=== PATIENT | female | born 1990 | race Caucasian/White ===

== ENCOUNTER 2016-10-05 17:46 | Emergency (ER) | payer OTHER ==
[~2016-10-05] VITALS: Ht 160 cm; Wt 70.1 kg
[2016-10-05] MEDS ORDERED: AUGM875T28 PO (18:40)
[2016-10-05] MEDS ORDERED: AUGMENTIN 875 MG TAB PO ONE (18:45)
[2016-10-05 18:51] VITALS: BP 118/70
== END 2016-10-05 18:52 | disposition home or self-care (01) ==
LOC: M ED 17:46
DX: H66.91 Otitis media, unspecified, right ear (principal)

== ENCOUNTER 2016-11-16 16:52 | Emergency (ER) | payer OTHER ==
[~2016-11-16] VITALS: Ht 160 cm; Wt 68.2 kg
[~2016-11-16 16:52] MED LIST: AUGM875T28 PO
[2016-11-16 16:53] VITALS: BP 117/75
== END 2016-11-16 18:49 | disposition left against medical advice (07) ==
LOC: M ED 16:52
DX: H92.09 Otalgia, unspecified ear (principal); Z53.21 Procedure and treatment not carried out due to patient leaving prior to being seen by health care provider

== ENCOUNTER 2016-12-30 08:08 | Emergency (ER) | payer OTHER ==
[~2016-12-30] VITALS: Ht 160 cm; Wt 65.1 kg
[2016-12-30 08:09] VITALS: BP 127/74
== END 2016-12-30 09:42 | disposition home or self-care (01) ==
LOC: M ED 08:08
DX: H92.01 Otalgia, right ear (principal); J06.9 Acute upper respiratory infection, unspecified

== ENCOUNTER 2017-10-16 07:41 | Emergency (ER) | payer OTHER | END 2017-10-16 08:31 | disposition home or self-care (01) | LOC: M ED 07:41 | DX: Z76.0 Encounter for issue of repeat prescription (principal); O21.0 Mild hyperemesis gravidarum; Z3A.00 Weeks of gestation of pregnancy not specified | CPT/HCPCS: 99282 ==

== ENCOUNTER 2017-10-28 09:02 | Emergency (ER) | payer OTHER ==
[2017-10-28 09:28] LABS: BASO % 0.3 % (0.0-1.0); EOS % 0.1 % (0.0-3.0); HEMATOCRIT 39.7 % (36.0-47.0); HEMOGLOBIN 13.6 g/dl (12.0-15.5); IMMATURE GRANULOCYTE % 0.3 % (0-3.0); LYMPH # 1.8 10^3/uL (1.5-6.5); LYMPH % 24.5 % (24.0-44.0); MEAN CORPUSCULAR HEMOGLOBIN 29.6 pg (27.0-33.0); MEAN CORPUSCULAR HGB CONC 34.3 g/dl (32.0-36.5); MEAN CORPUSCULAR VOLUME 86.3 fl (80.0-96.0); MONO # 0.4 10^3/uL (0.0-0.8); NEUTROPHILS # 5.1 10^3/uL (1.8-7.7); NEUTROPHILS % 69.8 % (36.0-66.0); PLATELET COUNT, AUTOMATED 237 10^3/uL (150-450); RED CELL DISTRIBUTION WIDTH 11.9 % (11.5-14.5); WHITE BLOOD COUNT 7.4 10^3/uL (4.0-10.0)
[2017-10-28 10:03] LABS: KETONE, URINE AUTO RFX NEGATIVE (NEGATIVE); LEUKOCYTE ESTERASE UR AUTO RFX NEGATIVE (NEGATIVE); NITRITE, URINE AUTO RFX NEGATIVE (NEGATIVE); RBC, URINE AUTO RFX TNTC /HPF (0-3); SPECIFIC GRAVITY UR AUTO RFX 1.009 (1.002-1.035); SQUAM EPITHELIAL CELL UR AURFX 2 /HPF (0-6); WBC, URINE AUTO RFX 3 /HPF (0-3)
[2017-10-28 10:37] LABS: HCG, SERUM QUANTITATIVE 66616 MIU/ML
== END 2017-10-28 11:02 | disposition home or self-care (01) ==
LOC: M ED 09:02
DX: O23.41 Unspecified infection of urinary tract in pregnancy, first trimester (principal); O20.8 Other hemorrhage in early pregnancy; Z3A.01 Less than 8 weeks gestation of pregnancy
CPT/HCPCS: 76801

== ENCOUNTER 2017-10-29 14:08 | Emergency (ER) | payer OTHER ==
[2017-10-29] MEDS: METOCLOPRAMIDE 10 MG TAB PO (17:27)
== END 2017-10-29 17:32 | disposition home or self-care (01) ==
LOC: M ED 14:08
DX: O21.0 Mild hyperemesis gravidarum (principal); Z79.899 Other long term (current) drug therapy; Z3A.01 Less than 8 weeks gestation of pregnancy
CPT/HCPCS: 99283

== ENCOUNTER → 2017-11-02 | Outpatient (CLI) | payer OTHER ==
[2017-11-02 14:15] LABS: BASO % 0.4 % (0.0-1.0); EOS % 0.4 % (0.0-3.0); HEMATOCRIT 37.4 % (36.0-47.0); HEMOGLOBIN 12.7 g/dl (12.0-15.5); IMMATURE GRANULOCYTE % 0.4 % (0-3.0); LYMPH # 1.6 10^3/uL (1.5-6.5); LYMPH % 21.7 % (24.0-44.0); MEAN CORPUSCULAR HEMOGLOBIN 29.8 pg (27.0-33.0); MEAN CORPUSCULAR VOLUME 87.8 fl (80.0-96.0); MONO # 0.6 10^3/uL (0.0-0.8); MONO % 8.5 % (0.0-5.0); NEUTROPHILS # 5.1 10^3/uL (1.8-7.7); NEUTROPHILS % 68.6 % (36.0-66.0); PLATELET COUNT, AUTOMATED 237 10^3/uL (150-450); RED BLOOD COUNT 4.26 10^6/uL (4.00-5.40); RED CELL DISTRIBUTION WIDTH 11.9 % (11.5-14.5); WHITE BLOOD COUNT 7.4 10^3/uL (4.0-10.0)
[2017-11-02 15:06] LABS: HBsAg Prenatal NEGATIVE (NEGATIVE); HIV 1&2 SCREEN CENTAUR NEGATIVE (NEGATIVE); RUBELLA IgG QUALITATIVE IMMUNE (IMMUNE)
[2017-11-02 15:06] LABS: HEPATITIS C VIRUS ABY INDEX 0.1 INDEX (<0.8)
[2017-11-02 15:39] LABS: CHLAMYDIA DNA AMPLIFICATION NEGATIVE (NEGATIVE); GC DNA AMPLIFICATION NEGATIVE (NEGATIVE)
== END ==
LOC: M SMT 10:06
DX: Z34.81 Encounter for supervision of other normal pregnancy, first trimester (principal); Z36.89 Encounter for other specified antenatal screening; Z3A.08 8 weeks gestation of pregnancy
CPT/HCPCS: 86762

== ENCOUNTER → 2018-01-22 | Outpatient (CLI) | payer OTHER | LOC: M SMT 13:29 | DX: Z36.89 Encounter for other specified antenatal screening (principal); Z3A.19 19 weeks gestation of pregnancy | CPT/HCPCS: 76811 ==

== ENCOUNTER → 2018-03-30 | Outpatient (CLI) | payer OTHER ==
[~2018-03-30] MED LIST changes: +DICL10TA PO; +MACR100C43 PO; +PRENCHW PO; +REGL10TA6 PO
[2018-03-30 13:48] LABS: BASO % 0.3 % (0.0-1.0); EOS # 0.1 10^3/uL (0.0-0.50); EOS % 1.1 % (0.0-3.0); HEMATOCRIT 35.9 % (36.0-47.0); HEMOGLOBIN 12.1 g/dl (12.0-15.5); LYMPH # 1.6 10^3/uL (1.5-6.5); LYMPH % 16.1 % (24.0-44.0); MEAN CORPUSCULAR HGB CONC 33.7 g/dl (32.0-36.5); MEAN CORPUSCULAR VOLUME 89.1 fl (80.0-96.0); MONO # 0.5 10^3/uL (0.0-0.8); MONO % 4.7 % (0.0-5.0); NEUTROPHILS # 7.5 10^3/uL (1.8-7.7); NEUTROPHILS % 77.3 % (36.0-66.0); PLATELET COUNT, AUTOMATED 276 10^3/uL (150-450); RED BLOOD COUNT 4.03 10^6/uL (4.00-5.40); WHITE BLOOD COUNT 9.7 10^3/uL (4.0-10.0)
--- NOTE | 2018-03-31 05:50 | REP ---
Clinical: Anatomical evaluation. Comparison: 01/22/2018 . Findings: Examination demonstrates a single live intrauterine in cephalic presentation. motion is identified by technologist. Placenta is noted posterior and grade grade 1 without evidence for placenta previa or abruption. Amniotic fluid volume is normal. Cervix measures 4.2 cm in length and appears closed. No evidence for nuchal cord. Gestational age by LMP 29 weeks 6 days with MATT 06/09/2018 . Gestational age by current measurements 29 weeks 2 days with MATT 06/13/2018 . FHR equals 131 beats per minute. Estimated weight 1454 grams ( 39th percentile). Amniotic fluid index: 15.4 cm (9.0 - 23.4) Umbilical cord SD ratio: 3.27 (2.50 - 3.50). Anatomical assessment demonstrates normal structures including cranium, choroid plexus, cavum, cerebellum, facial features, lungs, four-chamber heart/ventricular outflow tracts, diaphragm, stomach, cord insertion/three-vessel cord, kidneys/bladder. Impression: 1. Single live intrauterine in cephalic presentation demonstrating appropriate interval growth. 2. In conjunction with prior examination anatomical assessment is complete and normal. Electronically Signed by Gen Raymond MD 03/31/2018 05:41 A
== END ==
LOC: M RAD 11:49
PROVIDERS: ATTEND Advanced Practice Midwife
DX: Z34.82 Encounter for supervision of other normal pregnancy, second trimester (principal)

== ENCOUNTER → 2018-05-12 | Outpatient (CLI) | payer OTHER | LOC: M SMT 13:38 | PROVIDERS: ATTEND Obstetrics & Gynecology | DX: Z34.83 Encounter for supervision of other normal pregnancy, third trimester (principal); Z3A.00 Weeks of gestation of pregnancy not specified ==

== ENCOUNTER 2018-06-11 10:28 | Inpatient (IN) | payer OTHER ==
[2018-06-11] VITALS (22 sets, daily range): BP systolic 94–142; BP diastolic 50–90
[~2018-06-11] VITALS: Ht 160 cm; Wt 86.7 kg
[2018-06-11] MEDS ORDERED: LR 1,000 ML IV SCH (11:12)
[2018-06-11] MEDS ORDERED: LACTATED RINGER'S 1000 ML IV STA (11:12)
--- NOTE | 2018-06-11 11:27 | HPEPDOC ---
Obstetrical History & Physical General Date of Admission June 11, 2018 at 10:28 History of Present Illness Chief Complaint: Contractions, term Information Provided By: Patient Age: 27 : 2 Term: 1 Pre-term: 0 Abortions: 0 Livin Care Care: Good Care Dating Final EDC: June 09, 2018 Final EDC by: LMP Antepartum Course Height (inches): 63 Pre- weight (lbs.): 135 Admission Weight (lbs.): 197 Past Medical History Past Obstetrical History : Past Obstetrical History: Primgravida (2015) Type of Delivery: Spontaneous Vaginal Del. 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 history Past Medical History Surgical History: Denies/None Family History Significant Family History: Diabetes, Hypertension Social History Marital Status: Single Psychosocial History: Anxiety (stopped lexapro with ) * Smoker: non-smoker Alcohol: Denies Drugs: denies Abuse Violence Screening Have you been hit/kicked/slapp: No Have you been sexually assault: No Imunizations Tdap status: current Allergies Coded Allergies: No Known Allergies (Unverified , 10/05/16) Medications Scheduled Pnv No.118/Iron Fumarate/FA ( 19 Chewable Tablet) 1 Chw Chw, 1 TAB PO DAILY Scheduled PRN Doxylamine Succinate/Vit B6 (Diclegis Dr 10-10 mg Tablet) 1 Tab Tab, 1 TAB PO Q8HP PRN for NAUSEA Metoclopramide HCl (Reglan) 10 Mg Tab, 10 MG PO Q6H PRN for NAUSEA Physical Examination Physical Examination GENERAL: Alert and oriented times three. Appear mildly uncomfortable and anxious BREAST: . ABDOMEN: Gravid and non-tender to touch. FETUS: Is vertex (VTX) by sterile vaginal examination (SVE), fetus is vertex (VTX) by Mark. HEART RATE: Regular rate and rhythm. LUNGS: Clear to auscultation (CTA). EXTREMITIES: No edema. No clonus. Deep tendon reflexes (DTRs) + 2. Vital Signs/I&O Vital Signs Date Time Temp Pulse Resp B/P (MAP) Pulse Ox O2 Delivery O2 Flow Rate FiO2 06/11/18 10:55 98.8 116 18 139/79 (99) Pertinent Laboratoy Data Blood Type: A- RBC Antibody Screen: Negative HIV: Negative Hepatitis B: Negative Hepatitis C: Negative Rapid Plasma Reagin: Nonreactive Rubella: Immune Chlamydia/Gonorrhea: Negative Group B Streptococcus: Negative Quad Screen Test: Declined Glucose Tolerance Test: 110 Anatomy Ultrasound Ultrasound Date: Jan 22, 2018 Placenta Location: Posterior Normal Anatomy: Yes Placenta Previa: No Estimated Weight (grams): 320 (33%) Other Ultrasounds 10/28/17 [facility] 7w6d subchorionic hemorrhage 11/02/17 [facility] + FH 8w4d 03/30/18 f/u anatomy 1454gm 39% Steroid Therapy Steroid Therapy: No Vaginal Examination Dilation: 3 cm Effacement: 80% Station: -2 Cervical Consistency: Soft (bloody show) Cervical Position: Middle Presentation: Cephalic presentation Assessment Heart Rate (FHR): 135 Variability: Moderate Accelerations: Positive Decelerations: Early, Variable Tocometer Contractions: Yes (3-4 minutes) Duration: less than 60 seconds Strength: palpated as moderate Assessment/Plan Assessment 25 is a 27-year-old (G)2 para (P)1-0-0-1 at 40+2 weeks by 7-week ultrasound. Presents to Labor and Delivery (L&D) with complaints of UC since 0300 this am accompanied by bloody show. Denies LOF or bleeding. Fetus is active. Pt is anxious, breathing with UC. 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 Diet: clear liquids. Group B Streptococcus (GBS) negative. Labs and intravenous (IV) per unit protocol. Counseled on Pitocin and induction of labor (IOL). Lactated Ringers (LR): Bolus 500 mL, then at 125 mL/hr. Pt plans epidural for labor coping Anticipate normal spontaneous delivery () C-S as appropriate. Nicole Talley CNM June 11, 2018 11:27
[2018-06-11 11:43] LABS: HEMATOCRIT 36.9 % (36.0-47.0); HEMOGLOBIN 12.3 g/dl (12.0-15.5); MEAN CORPUSCULAR HEMOGLOBIN 28.1 pg (27.0-33.0); MEAN CORPUSCULAR HGB CONC 33.3 g/dl (32.0-36.5); MEAN CORPUSCULAR VOLUME 84.2 fl (80.0-96.0); PLATELET COUNT, AUTOMATED 274 10^3/uL (150-450); RED BLOOD COUNT 4.38 10^6/uL (4.00-5.40); WHITE BLOOD COUNT 18.1 10^3/uL (4.0-10.0)
--- NOTE | 2018-06-11 13:07 | IPNPDOC ---
Text Note Date of Service The patient was seen on 06/11/18. NOTE Breathing hard with UC Cat II tracing, IV finally started after multiple attempts UC now regular, strong, Q 2-3 minutes x 60+ seconds SVE 6/100/-2, BBOw, + bloody show Epidural requested. Will continue bolus A-FIB/CHADSVASC A-FIB History Current/History of A-Fib/PAF?: No VS,Fishbone, I+O VS, Fishbone, I+O Laboratory Tests 06/11/18 11:29 Red Blood Count 4.38, Mean Corpuscular Volume 84.2, Mean Corpuscular Hemoglobin 28.1, Mean Corpuscular Hemoglobin Concent 33.3, Red Cell Distribution Width 12.5 Vital Signs Date Time Temp Pulse Resp B/P (MAP) Pulse Ox O2 Delivery O2 Flow Rate FiO2 06/11/18 10:55 98.8 116 18 139/79 (99) Nicole Talley CNM June 11, 2018 13:06
[2018-06-11] MEDS ORDERED: FENTANYL/ROPIVACAINE/NACL BAG 100 ML EPIDURAL SCH (14:00)
[2018-06-11] MEDS ORDERED: NALOXONE INJ 0.4 MG/1 ML VIAL (J2310) IV PRN (14:00)
[2018-06-11] MEDS ORDERED: EPIDURAL/PCA KEYS XX PRN (14:00)
[2018-06-11] MEDS ORDERED: diphenhydrAMINE INJ 50MG/ML VIAL (J1200) IV PRN (14:00)
[2018-06-11] MEDS ORDERED: ONDANSETRON 4MG/2ML VIAL (J2405) IV PRN (14:00)
[2018-06-11] MEDS ORDERED: EPIDURAL COMMENT XX SCH (14:00)
[2018-06-11] MEDS ORDERED: LACTATED RINGER'S 1000 ML IV PRN (14:00)
[2018-06-11] MEDS ORDERED: REFRIGERATOR IV KEYS XX PRN (14:00)
[2018-06-11] MEDS ORDERED: ePHEDrine SULFATE 25 MG/5 ML(5MG/ML) SYRINGE IV PRN (14:00)
--- NOTE | 2018-06-11 14:45 | IPNPDOC ---
Text Note Date of Service The patient was seen on 06/11/18. NOTE Dr Vasquez informed of pt status 7cm/BBOW, unable to ROM due to position of presenting part Recurrent variable decels, variability maintained UC 2-4 minutes apart x 45-60 seconds Position changed, IV hydration continued Anticipate NSVB A-FIB/CHADSVASC A-FIB History Current/History of A-Fib/PAF?: No VS,Fishbone, I+O VS, Fishbone, I+O Laboratory Tests 06/11/18 11:29 Red Blood Count 4.38, Mean Corpuscular Volume 84.2, Mean Corpuscular Hemoglobin 28.1, Mean Corpuscular Hemoglobin Concent 33.3, Red Cell Distribution Width 12.5 Vital Signs Date Time Temp Pulse Resp B/P (MAP) Pulse Ox O2 Delivery O2 Flow Rate FiO2 06/11/18 14:00 99.4 136 18 108/57 (74) Nicole Talley CNM June 11, 2018 14:45
--- NOTE | 2018-06-11 15:30 | IPNPDOC ---
Text Note Date of Service The patient was seen on 06/11/18. NOTE Feeling increased pressure Cat I tracing UC difficult to trace due to position 7/100/-1, AROM large amount clear fluid Anticipate NSVB A-FIB/CHADSVASC A-FIB History Current/History of A-Fib/PAF?: No VS,Fishbone, I+O VS, Fishbone, I+O Laboratory Tests 06/11/18 11:29 Red Blood Count 4.38, Mean Corpuscular Volume 84.2, Mean Corpuscular Hemoglobin 28.1, Mean Corpuscular Hemoglobin Concent 33.3, Red Cell Distribution Width 12.5 Vital Signs Date Time Temp Pulse Resp B/P (MAP) Pulse Ox O2 Delivery O2 Flow Rate FiO2 06/11/18 14:00 99.4 136 18 108/57 (74) Nicole Talley CNM June 11, 2018 15:30
[2018-06-11] MEDS ORDERED: OXYTOCIN 30 UNITS IN 0.9% NaCl 500ML IV BAG (J2590) As Ordered ONE (15:48)
[2018-06-11] MEDS ORDERED: OXYTOCIN DRIP 30 UNITS in APPROPRIATE DILUENT 1 EA IV SCH (16:34)
[2018-06-11] MEDS ORDERED: MEASLES,MUMPS,RUBELLA VACCINE INJ (MMR-II) (90707) SC SCH (16:45)
[2018-06-11] MEDS ORDERED: ACETAMINOPHEN 500 MG TAB PO PRN (16:45)
[2018-06-11] MEDS ORDERED: RHOGAM 300 MCG (1500 IU) INJ (J2790) IM SCH (16:45)
[2018-06-11] MEDS ORDERED: MOM 30ML SUSPENSION UDC PO PRN (16:45)
[2018-06-11] MEDS ORDERED: DIBUCAINE 1% OINTMENT 30GM TOP PRN (16:45)
[2018-06-11] MEDS ORDERED: IBUPROFEN 800 MG TAB PO PRN (16:45)
[2018-06-11] MEDS ORDERED: METHYLERGONOVINE MALEATE 0.2 MG TAB PO PRN (16:45)
[2018-06-11] MEDS ORDERED: ANUSOL HC CREAM 30GM TOP PRN (16:45)
[2018-06-11] MEDS ORDERED: DOCUSATE SODIUM 100 MG CAP PO PRN (16:45)
--- NOTE | 2018-06-11 16:45 | DNPDOC ---
[facility] Delivery Note Delivery Note DATE OF DELIVERY: 06/11/18 PREDELIVERY DIAGNOSIS: 40-2/7 weeks' gestation and labor. POST DELIVERY DIAGNOSIS: Delivered. PROCEDURE: Spontaneous vaginal delivery. PROVIDER: Nicole Talley CNM ANESTHESIA: Epidural. ESTIMATED BLOOD LOSS: 200 mL. FINDINGS: 6 pound 5 ounce, 2860gm female infant, Score 8/9, no nuchal cord. DELIVERY SUMMARY: Patient is a 27-year-old 2 now para 2-0-0-2 who was admitted to labor and delivery for labor. She utilized an epidural for labor coping. AROM large amount clear fluid 1526 @ 7cm. FD 1607. Viable female del ivered OA, shoulders directly transverse @ 1616. Spontaneous respirations with stimulation, transitioned on maternal abdomen. Cord doubly clamped and cut by FOB under my direction once pulsations ceased. Apgars 8/9. Placenta long, intact with 3 v cord @ 1625, battledore configuration noted. Fundus firmed with massage and IV pitocin bolus. EBL 200ml. Perineum, cervix and vagina inspected, noted to be intact. Infant wt 2860gm, 6#5. Parents are naming their daughter Stacey. Sponge, sharp and instrument count correct. Nicole Talley CNM June 11, 2018 16:45
[2018-06-11] MEDS: SLF 3 ML SYR IV SCH (21:34)
[2018-06-12 06:00] VITALS: BP 100/58
[2018-06-12] MEDS: SLF 3 ML SYR IV SCH ×2 (07:58→13:23)
[2018-06-12] MEDS: PRENATAL VITAMINS CHEWABLE TABLET PO SCH (07:58)
[2018-06-12 18:51] VITALS: BP 111/67
[2018-06-13 06:15] VITALS: BP 102/56
[2018-06-13] MEDS: PRENATAL VITAMINS CHEWABLE TABLET PO SCH (08:19)
[2018-06-13] MEDS ORDERED: MAPA500T2 PO (09:26)
[2018-06-13] MEDS ORDERED: IBUP-1114 PO (09:26)
== END 2018-06-13 13:27 | disposition home or self-care (01) | DRG 560 ==
LOC: M LDI 10:28 → M OBS 18:01
PROVIDERS: ADMIT Advanced Practice Midwife; ATTEND Advanced Practice Midwife
PROC: 10E0XZZ Delivery of Products of Conception, External Approach (ICD-10-PCS; principal; 2018-06-11)
PROC: 10907ZC Drainage of Amniotic Fluid, Therapeutic from Products of Conception, Via Natural or Artificial Opening (ICD-10-PCS; 2018-06-11)
DX: O48.0 Post-term pregnancy (principal); Z37.0 Single live birth; Z3A.40 40 weeks gestation of pregnancy

== ENCOUNTER → 2019-02-08 | Outpatient (REF) | payer OTHER ==
[~2019-02-08] MED LIST changes: +IBUP-1114 PO; +MAPA500T2 PO
[2019-02-08 13:18] LABS: BASO % 0.6 % (0.0-1.0); EOS # 0.2 10^3/uL (0.0-0.5); EOS % 2.5 % (0.0-3.0); HEMATOCRIT 40.2 % (36.0-47.0); HEMOGLOBIN 12.9 g/dl (12.0-15.5); LYMPH # 1.9 10^3/uL (1.5-5.0); LYMPH % 29.4 % (24.0-44.0); MEAN CORPUSCULAR HEMOGLOBIN 27.2 pg (27.0-33.0); MEAN CORPUSCULAR HGB CONC 32.1 g/dl (32.0-36.5); MEAN CORPUSCULAR VOLUME 84.8 fl (80.0-96.0); MONO # 0.5 10^3/uL (0.0-0.8); MONO % 7.1 % (0.0-5.0); NEUTROPHILS # 3.8 10^3/uL (1.5-8.5); NEUTROPHILS % 60.2 % (36.0-66.0); PLATELET COUNT, AUTOMATED 249 10^3/uL (150-450); RED BLOOD COUNT 4.74 10^6/uL (4.00-5.40); WHITE BLOOD COUNT 6.3 10^3/uL (4.0-10.0)
[2019-02-08 13:38] LABS: HEMOGLOBIN A1c 5.8 %
[2019-02-08 13:57] LABS: ALBUMIN 4.1 GM/DL (3.2-5.2); ALT/SGPT 27 U/L (12-78); BILIRUBIN,TOTAL 0.7 MG/DL (0.2-1.0); BLOOD UREA NITROGEN 14 MG/DL (7-18); CALCIUM LEVEL 8.8 MG/DL (8.5-10.1); CARBON DIOXIDE LEVEL 25 MEQ/L (21-32); CHLORIDE LEVEL 106 MEQ/L (98-107); CHOLESTEROL LEVEL 148 MG/DL (<200); CHOLESTEROL RISK RATIO 2.901 (<5); CREATININE FOR GFR 0.76 MG/DL (0.55-1.30); GLOMERULAR FILTRATION RATE > 60.0 (>60); GLUCOSE, FASTING 84 MG/DL (70-100); HDL CHOLESTEROL 51 MG/DL (>40); LDL CHOLESTEROL 84 MG/DL (<100); NON-HDL-C 97 MG/DL; SODIUM LEVEL 138 MEQ/L (136-145); TOTAL 25(OH) VITAMIN D 25.5 NG/ML (30.0-100.0); TOTAL PROTEIN 7.1 GM/DL (6.4-8.2); TRIGLYCERIDES LEVEL 64 MG/DL (<150)
== END ==
LOC: M LAB REF 12:42
PROVIDERS: ATTEND Nurse Practitioner Family
DX: Z00.01 Encounter for general adult medical examination with abnormal findings (principal)

== ENCOUNTER 2019-11-26 19:17 | Emergency (ER) | payer OTHER ==
[~2019-11-26] VITALS: Ht 160 cm; Wt 70.9 kg
[2019-11-26] MEDS ORDERED: GUMMCHW PO (19:28)
[2019-11-26] MEDS ORDERED: FLON27.5 NARES (20:18)
[2019-11-26 20:38] VITALS: BP 121/81
== END 2019-11-26 20:38 | disposition home or self-care (01) ==
LOC: M ED 19:17
DX: J06.9 Acute upper respiratory infection, unspecified (principal)

== ENCOUNTER → 2020-04-18 | Outpatient (REF) | payer OTHER ==
[~2020-04-18] MED LIST changes: +FLON27.5 NARES; +GUMMCHW PO
== END ==
LOC: M LAB REF 21:05
PROVIDERS: ATTEND Physician Assistant
DX: J02.9 Acute pharyngitis, unspecified (principal)

== ENCOUNTER → 2021-09-13 | Outpatient (REF) | payer OTHER | LOC: EDSEX → MERGE 16:29 → M PLALAB 16:29 | PROVIDERS: ATTEND Advanced Practice Midwife | DX: Z01.419 Encounter for gynecological examination (general) (routine) without abnormal findings (principal); Z12.4 Encounter for screening for malignant neoplasm of cervix ==

== ENCOUNTER → 2023-08-17 | Outpatient (REF) | payer OTHER ==
[2023-08-17 13:49] LABS: BASO % 0.6 % (0.0-1.0); EOS # 0.2 10^3/uL (0.0-0.5); EOS % 2.4 % (0.0-3.0); HEMATOCRIT 39.2 % (36.0-47.0); LYMPH # 1.9 10^3/uL (1.5-5.0); LYMPH % 30.7 % (24.0-44.0); MEAN CORPUSCULAR HGB CONC 33.2 g/dl (32.0-36.5); MEAN CORPUSCULAR VOLUME 87.3 fl (80.0-96.0); MONO # 0.4 10^3/uL (0.0-0.8); MONO % 6.5 % (2.0-8.0); NEUTROPHILS # 3.7 10^3/uL (1.5-8.5); NEUTROPHILS % 59.6 % (36.0-66.0); PLATELET COUNT, AUTOMATED 252 10^3/uL (150-450); RED BLOOD COUNT 4.49 10^6/uL (4.00-5.40); WHITE BLOOD COUNT 6.2 10^3/uL (4.0-10.0)
[2023-08-17 14:04] LABS: HEMOGLOBIN A1c 5.3 % (4.0-6.0)
[2023-08-17 14:20] LABS: ALBUMIN 3.4 G/DL (3.2-5.2); ALKALINE PHOSPHATASE 101 U/L (46-116); ALT/SGPT 69 U/L (7.0-40); AST/SGOT 26 U/L (<34); BILIRUBIN,TOTAL 0.7 MG/DL (0.3-1.2); BLOOD UREA NITROGEN 13 MG/DL (9-23); CALCIUM LEVEL 8.3 MG/DL (8.5-10.1); CARBON DIOXIDE LEVEL 26 MMOL/L (20-31); CHLORIDE LEVEL 107 MMOL/L (98-107); CHOLESTEROL LEVEL 147 MG/DL (<200); CHOLESTEROL RISK RATIO 3.03 (<5); CREATININE FOR GFR 0.68 MG/DL (0.55-1.30); GLOMERULAR FILTRATION RATE > 60.0 (>60); GLUCOSE, FASTING 81 MG/DL (60-100); HDL CHOLESTEROL 48.5 MG/DL (>40); LDL CHOLESTEROL 83.1 MG/DL (<100); NON-HDL-C 98.5 MG/DL; POTASSIUM SERUM 4.2 MMOL/L (3.5-5.1); SODIUM LEVEL 136 MMOL/L (136-145); TOTAL PROTEIN 6.2 G/DL (5.7-8.2); TRIGLYCERIDES LEVEL 77 MG/DL (<150)
[2023-08-17 14:21] LABS: THYROID STIMULATING HORMONE 1.653 uIU/ML (0.55-4.78)
== END ==
LOC: M LAB REF 13:17
PROVIDERS: ATTEND Nurse Practitioner Family
DX: E66.3 Overweight (principal); E55.9 Vitamin D deficiency, unspecified

== ENCOUNTER → 2023-10-20 | Outpatient (REF) | payer OTHER ==
[2023-10-20 18:32] LABS: ALKALINE PHOSPHATASE 77 U/L (46-116); ALT/SGPT 54 U/L (7.0-40); AST/SGOT 21 U/L (<34); BILIRUBIN,DIRECT 0.2 MG/DL (<0.4); BILIRUBIN,TOTAL 0.6 MG/DL (0.3-1.2); BLOOD UREA NITROGEN 15 MG/DL (9-23); CALCIUM LEVEL 9.3 MG/DL (8.5-10.1); CARBON DIOXIDE LEVEL 27 MMOL/L (20-31); CHLORIDE LEVEL 107 MMOL/L (98-107); CREATININE FOR GFR 0.72 MG/DL (0.55-1.30); GLOMERULAR FILTRATION RATE > 60.0 (>60); GLUCOSE, FASTING 76 MG/DL (60-100); POTASSIUM SERUM 4.6 MMOL/L (3.5-5.1); SODIUM LEVEL 139 MMOL/L (136-145); TOTAL PROTEIN 7.1 G/DL (5.7-8.2)
== END ==
LOC: M LAB REF 16:24
PROVIDERS: ATTEND Nurse Practitioner Family
DX: R74.01 Elevation of levels of liver transaminase levels (principal); E83.51 Hypocalcemia